=== PATIENT | female | born 1990 | race Caucasian/White ===

== ENCOUNTER 2020-07-12 15:25 | Outpatient (CLI) | payer OTHER | END 2020-07-12 15:32 | disposition home or self-care (01) | LOC: LAB 15:25 | PROVIDERS: ATTEND Obstetrics & Gynecology | DX: D64.89 Other specified anemias (principal); E78.2 Mixed hyperlipidemia; E16.2 Hypoglycemia, unspecified; E03.8 Other specified hypothyroidism; N39.0 Urinary tract infection, site not specified; E55.9 Vitamin D deficiency, unspecified; N91.1 Secondary amenorrhea ==

== ENCOUNTER 2020-07-30 17:22 | Outpatient (CLI) | payer OTHER | END 2020-07-30 19:09 | disposition home or self-care (01) | LOC: LAB 17:22 | PROVIDERS: ATTEND Obstetrics & Gynecology | DX: Z30.09 Encounter for other general counseling and advice on contraception (principal); N91.1 Secondary amenorrhea ==

== ENCOUNTER 2020-12-06 09:24 | Outpatient (CLI) | payer OTHER | END 2020-12-06 09:32 | disposition home or self-care (01) | LOC: LAB 09:24 | PROVIDERS: ATTEND Internal Medicine | DX: Z13.89 Encounter for screening for other disorder (principal); Z13.29 Encounter for screening for other suspected endocrine disorder; Z13.220 Encounter for screening for lipoid disorders; Z13.828 Encounter for screening for other musculoskeletal disorder ==

== ENCOUNTER 2020-12-09 10:57 | Emergency (ER) | payer OTHER ==
[~2020-12-09] VITALS: Ht 152.4 cm; Wt 61.2 kg
== END 2020-12-09 17:49 | disposition home or self-care (01) ==
LOC: ER 10:57
DX: E05.80 Other thyrotoxicosis without thyrotoxic crisis or storm (principal); N39.0 Urinary tract infection, site not specified; Z03.818 Encounter for observation for suspected exposure to other biological agents ruled out; R53.81 Other malaise

== ENCOUNTER → 2020-12-16 10:58 | Outpatient (CLI) | payer OTHER | END | disposition home or self-care (01) | LOC: LAB 10:58 | PROVIDERS: ATTEND General Practice | DX: E05.90 Thyrotoxicosis, unspecified without thyrotoxic crisis or storm (principal) ==

== ENCOUNTER 2020-12-26 07:33 | Outpatient (CLI) | payer OTHER | END 2020-12-26 07:49 | disposition home or self-care (01) | LOC: SONOGRAMA 07:33 | PROVIDERS: ATTEND General Practice | DX: E05.90 Thyrotoxicosis, unspecified without thyrotoxic crisis or storm (principal); E04.2 Nontoxic multinodular goiter ==

== ENCOUNTER → 2021-02-18 08:51 | Outpatient (CLI) | payer OTHER | END | disposition home or self-care (01) | LOC: NUCLEAR 08:00 | PROVIDERS: ATTEND Internal Medicine Endocrinology, Diabetes & Metabolism | DX: E05.90 Thyrotoxicosis, unspecified without thyrotoxic crisis or storm (principal) | CPT/HCPCS: 78012; A9531 ==

== ENCOUNTER 2021-02-19 08:43 | Outpatient (CLI) | payer OTHER | END 2021-02-19 08:45 | disposition home or self-care (01) | LOC: NUCLEAR 08:43 | PROVIDERS: ATTEND Internal Medicine Endocrinology, Diabetes & Metabolism | DX: E05.90 Thyrotoxicosis, unspecified without thyrotoxic crisis or storm (principal) | CPT/HCPCS: 78013; A9512 ==